=== PATIENT | male | born 1970 | race Two or more races ===

== ENCOUNTER 2019-10-16 12:27 | Emergency (ER) | payer SELFPAY ==
[~2019-10-16] VITALS: Ht 180.3 cm; Wt 83.9 kg
[2019-10-16 12:40] VITALS: BP 121/78
== END 2019-10-16 14:38 | disposition home or self-care (01) ==
LOC: EDBD 12:27 → ER 12:27
DX: S00.03XA Contusion of scalp, initial encounter (principal); E86.0 Dehydration; R41.82 Altered mental status, unspecified; W01.0XXA Fall on same level from slipping, tripping and stumbling without subsequent striking against object, initial encounter; Y93.89 Activity, other specified; Y92.148 Other place in prison as the place of occurrence of the external cause; Y99.8 Other external cause status
CPT/HCPCS: 70450